=== PATIENT | female | born 1945 | race Caucasian/White ===

== ENCOUNTER 2018-11-19 08:50 | Emergency (ER) | payer MEDICARE ==
[~2018-11-19] VITALS: Ht 172.7 cm; Wt 63.6 kg
[2018-11-19] MEDS ORDERED: CefTRIAXone 1000mg IM Kit (w/lidocaine diluent) IM ONE (09:25)
[2018-11-19] MEDS ORDERED: CEPH-572 PO (09:31)
[2018-11-19 09:39] VITALS: BP 140/71
== END 2018-11-19 09:41 | disposition home or self-care (01) ==
LOC: ER 08:51
DX: L03.114 Cellulitis of left upper limb (principal); R22.32 Localized swelling, mass and lump, left upper limb; Z98.890 Other specified postprocedural states; Z79.899 Other long term (current) drug therapy
CPT/HCPCS: 96372; 99283; J0696